=== PATIENT | male | born 2000 | race Hispanic/Latino ===

== ENCOUNTER 2023-01-20 21:46 | Emergency (ER) | payer OTHER ==
[~2023-01-20] VITALS: Ht 175.3 cm; Wt 54.0 kg
[~2023-01-20 21:46] MED LIST: CRUTCH1 EACH; VENTOLIN HFA18 GM INH
[2023-01-20] MEDS ORDERED: EPIPEN 2-P0.3 MG/0.3 IM (23:22)
[2023-01-20 23:34] VITALS: BP 125/80
== END 2023-01-20 23:30 | disposition home or self-care (01) ==
LOC: ED 21:46
DX: T78.1XXA Other adverse food reactions, not elsewhere classified, initial encounter (principal); R20.0 Anesthesia of skin; Z87.891 Personal history of nicotine dependence
CPT/HCPCS: 96374; 96375; 99283 25; J1100; J1200; J7121

== ENCOUNTER 2024-05-04 05:14 | Emergency (ER) | payer OTHER ==
[~2024-05-04] VITALS: Ht 175.3 cm; Wt 54.0 kg
[~2024-05-04 05:14] MED LIST changes: +AMOX TR-K CLV1 EAC1 PO; +CYCLOBENZAPRINE10 MG PO; +EPIPEN 2-P0.3 MG/0.3 IM; +MAGNESIUM OXID500 M1 PO
[2024-05-04] MEDS ORDERED: NICOTINE 21 MG/24 HR 1 EA TDSY TD ONE (05:30)
[2024-05-04 05:45] LABS: BILIRUBIN, URINE NEGATIVE (negative); BLOOD/HGB, URINE NEGATIVE (Negative); KETONE, URINE NEGATIVE (Negative); LEUK ESTERASE, URINE NEGATIVE (negative); NITRITE, URINE NEGATIVE (negative)
[2024-05-04 05:55] LABS: BASOPHILS 0.6 % (0-2); EOSINOPHILS 1.1 % (0-6); HEMATOCRIT 40.7 % (35.0-50.0); HEMOGLOBIN 13.5 g/dL (12.0-18.0); LYMPHOCYTES 9.9 % (24-44); MCH 28.3 (27-36); MCHC 33.2 g/dl (30-36); MCV 85.3 fl (81-99); MONOCYTES 9.2 % (0-12); NEUTROPHILS 79.2 % (39-80); PLATELET COUNT 239 K/uL (140-440); RBC 4.78 M/ul (4.3-5.7); RDW 14.4 (10.5-15.0)
[2024-05-04 05:59] LABS: AMPHETAMINES, URINE NEGATIVE (NEGATIVE); BARBITURATES, URINE NEGATIVE (NEGATIVE); BENZODIAZEPINE, URINE NEGATIVE (NEGATIVE); BUPRENORPHINE, URINE NEGATIVE (NEGATIVE); CANNABINOID, URINE POSITIVE (NEGATIVE); COCAINE, URINE NEGATIVE (NEGATIVE); ECSTASY, URINE NEGATIVE (NEGATIVE); FENTANYL, URINE NEGATIVE (NEGATIVE); METHADONE, URINE NEGATIVE (NEGATIVE); OPIATES, URINE NEGATIVE (NEGATIVE); OXYCODONE, URINE NEGATIVE (NEGATIVE); PHENCYCLIDINE, URINE NEGATIVE (NEGATIVE)
[2024-05-04 06:19] LABS: ACETAMINOPHEN 0 ug/mL (10-30); ALBUMIN 4.2 g/dL (3.4-5.0); ALBUMIN/GLOBULIN RATIO 1.35 (1.1-2.4); ALCOHOL, MEDICAL <3 ng/dL (<3); ALKALINE PHOSPHATASE 88 U/L (46-116); ALT (SGPT) 16 U/L (14-59); ANION GAP 10.4 (7-21); AST (SGOT) 14 U/L (15-37); BILIRUBIN, TOTAL 0.3 ng/dL (0.2-1.0); BUN/CREATININE RATIO 16.45 (6.0-28.6); CALCIUM 8.7 mg/dL (8.5-10.1); CARBON DIOXIDE 29 mmol/L (21-32); CHLORIDE 106 mmol/L (98-107); CREATININE, SERUM 0.79 mg/dL (0.70-1.30); GLOMERULAR FILTRATION RATE,EST 128 mL/min (>60); POTASSIUM 3.4 mmol/L (3.5-5.1); PROTEIN, TOTAL 7.3 g/dL (6.4-8.2); SALICYLATE 2.9 mg/dL (2.8-20.0); TSH, 3RD GENERATION 1.081 uIU/mL (0.358-3.740); UREA NITROGEN 13 mg/dL (7-18)
[2024-05-04] MEDS ORDERED: ACETAMINOPHEN 500 MG TAB PO ONE (08:00)
[2024-05-04] MEDS ORDERED: HYDROXYZINE HCL25 MG PO (09:15)
[2024-05-04 09:25] VITALS: BP 115/68
== END 2024-05-04 09:26 | disposition home or self-care (01) ==
LOC: ED 05:14
PROVIDERS: Internal Medicine
DX: R45.851 Suicidal ideations (principal); F32.9 Major depressive disorder, single episode, unspecified; J45.909 Unspecified asthma, uncomplicated; Z87.891 Personal history of nicotine dependence; Z91.018 Allergy to other foods
CPT/HCPCS: 36415; 80053; 80307; 81003; 84443; 85025; 99285; A9270; G0480

== ENCOUNTER 2024-06-27 17:33 | Emergency (ER) | payer OTHER ==
[~2024-06-27] VITALS: Ht 175.3 cm; Wt 58.7 kg
[~2024-06-27 17:33] MED LIST changes: +HYDROXYZINE HCL25 MG PO
[2024-06-27 17:57] LABS: BASOPHILS 0.3 % (0-2); HEMATOCRIT 42.7 % (35.0-50.0); HEMOGLOBIN 14.2 g/dL (12.0-18.0); LYMPHOCYTES 4.7 % (24-44); MCH 28.2 (27-36); MCHC 33.2 g/dl (30-36); MCV 84.8 fl (81-99); MONOCYTES 16.3 % (0-12); NEUTROPHILS 77.7 % (39-80); PLATELET COUNT 253 K/uL (140-440); RBC 5.04 M/ul (4.3-5.7); RDW 14.1 (10.5-15.0)
[2024-06-27] MEDS ORDERED: ondansetron HCL 4 MG/2 ML VIAL IV ONE (18:00)
[2024-06-27] MEDS ORDERED: HYDROmorphone HCL 1 MG/ML SYR IV ONE (18:00)
[2024-06-27] MEDS ORDERED: PANTOPRAZOLE SODIUM 40 MG/10 ML VIAL IV ONE (18:00)
[2024-06-27] MEDS ORDERED: SODIUM CHLORIDE 0.9% 1,000 ML IV ONE (18:00)
[2024-06-27 18:22] LABS: ALBUMIN 4.7 g/dL (3.4-5.0); ALBUMIN/GLOBULIN RATIO 1.47 (1.1-2.4); ALCOHOL, MEDICAL <3 ng/dL (<3); ALKALINE PHOSPHATASE 69 U/L (46-116); ALT (SGPT) 14 U/L (14-59); ANION GAP 18.7 (7-21); AST (SGOT) 17 U/L (15-37); BILIRUBIN, TOTAL 0.4 ng/dL (0.2-1.0); BUN/CREATININE RATIO 12.35 (6.0-28.6); CALCIUM 9.4 mg/dL (8.5-10.1); CARBON DIOXIDE 24 mmol/L (21-32); CHLORIDE 101 mmol/L (98-107); CREATININE, SERUM 0.89 mg/dL (0.70-1.30); GLOMERULAR FILTRATION RATE,EST 123 mL/min (>60); MAGNESIUM 1.5 mg/dL (1.8-2.4); POTASSIUM 3.7 mmol/L (3.5-5.1); PROTEIN, TOTAL 7.9 g/dL (6.4-8.2); UREA NITROGEN 11 mg/dL (7-18)
[2024-06-27 19:07] LABS: INFLUENZA B NAA NEGATIVE (NEGATIVE); RESPIRATORY SYNCYTIAL VIR NAA NEGATIVE (NEGATIVE)
[2024-06-27 20:00] VITALS: BP 125/81
--- NOTE | 2024-06-29 11:35 | EKG ---
[facility] [address] [facility] [place] [address] Signed Normal sinus rhythm Possible Left atrial enlargement Borderline ECG No previous ECGs available Confirmed by Alyce Soliz MD ([id number]) on 06/29/2024 11:35:46 AM Electronically Signed By: ALYCE SOLIZ MD 06/29/24 1135 PATIENT NAME: BONITA RAMOS Electrocardiogram DATE OF : [birth year] PHYSICIAN: ALYCE SOLIZ MD REPORT #: [id number] REPORT IS CONFIDENTIAL AND NOT TO BE RELEASED WITHOUT AUTHORIZATION
== END 2024-06-27 20:00 | disposition home or self-care (01) ==
LOC: ED 17:33
PROVIDERS: Emergency Medicine
DX: U07.1 COVID-19 (principal); R07.89 Other chest pain; J45.909 Unspecified asthma, uncomplicated; Z87.891 Personal history of nicotine dependence; Z91.018 Allergy to other foods; Z79.899 Other long term (current) drug therapy
CPT/HCPCS: 36415; 71260; 74177; 80053; 80307; 83690; 83735; 83880; 84484; 85025; 87502; 93005; 93010; 99285-25; G0480; J1171; J2405; J2470; J7030; Q9967; U0002

== ENCOUNTER 2024-12-27 20:26 | Emergency (ER) | payer OTHER ==
[~2024-12-27] VITALS: Ht 175.3 cm; Wt 56.7 kg
[2024-12-27] MEDS ORDERED: LACTATED RINGER'S 1,000 ML IV ONE (21:15)
[2024-12-27] MEDS ORDERED: ondansetron HCL 4 MG/2 ML VIAL IV ONE (21:15)
[2024-12-27] MEDS ORDERED: PROCHLORPERAZINE EDISYLATE 10 MG/2 ML VIAL IV ONE (21:15)
[2024-12-27] MEDS ORDERED: KETOROLAC TROMETHAMINE 30 MG/ML VIAL IV ONE (21:15)
[2024-12-27] MEDS ORDERED: diphenhydrAMINE HCL 50 MG/ML VIAL IV ONE (21:15)
[2024-12-27] MEDS ORDERED: ZOLOFT100 MG PO (22:15)
[2024-12-27 22:36] VITALS: BP 121/72
== END 2024-12-27 22:37 | disposition home or self-care (01) ==
LOC: ED 20:26
DX: G43.909 Migraine, unspecified, not intractable, without status migrainosus (principal); J45.909 Unspecified asthma, uncomplicated; Z87.891 Personal history of nicotine dependence
CPT/HCPCS: 96374; 96375; 99283-25; J0780; J1200; J1885; J2405; J7121

== ENCOUNTER 2025-06-02 12:34 | Emergency (ER) | payer OTHER ==
[~2025-06-02] VITALS: Ht 175.3 cm; Wt 52.8 kg
[~2025-06-02 12:34] MED LIST changes: +ZOLOFT100 MG PO
[2025-06-02 13:06] LABS: BASOPHILS 1.1 % (0.2-1.2); EOSINOPHILS 0.8 % (0.8-7.0); LYMPHOCYTES 15.0 % (21.8-53.1); MCH 27.5 PG (25.7-32.2); MCHC 32.0 g/dL (32.3-36.5); MCV 85.8 fL (79.0-92.2); MONOCYTES 6.6 % (5.3-12.2); NEUTROPHILS 76.1 % (34.0-67.9); RBC 5.13 M/uL (4.63-6.08)
[2025-06-02 13:27] LABS: ALCOHOL, MEDICAL <3 ng/dL (<3); ALT (SGPT) 15 U/L (14-59); AST (SGOT) 13 U/L (15-37); GLOMERULAR FILTRATION RATE,EST 129 mL/min (>60); PROTEIN, TOTAL 7.9 g/dL (6.4-8.2); TSH, 3RD GENERATION 1.198 uIU/mL (0.358-3.740); UREA NITROGEN 12 mg/dL (7-18)
[2025-06-02 15:26] VITALS: BP 134/91
== END 2025-06-02 15:27 | disposition home or self-care (01) ==
LOC: ED 12:34
PROVIDERS: Emergency Medicine
DX: R45.851 Suicidal ideations (principal); J45.909 Unspecified asthma, uncomplicated; F43.10 Post-traumatic stress disorder, unspecified; Z87.891 Personal history of nicotine dependence
CPT/HCPCS: 36415; 80053; 80307; 84443; 85025; 99285; G0480